=== PATIENT | male | born 1985 | race American Indian/Alaskan Native ===

== ENCOUNTER 2017-12-28 14:01 | Emergency (ER) | payer SELFPAY ==
--- NOTE | 2017-12-28 14:40 | C.PDOC ---
History Of Present Illness 32 y/o male presents to the ED for evaluation of a pilonidal abscess, onset a few days ago. Patient notes the area has been draining pus so he came in for evaluation. No fever or chills. Patient offers no other physical complaints. Time Seen by Provider: 12/28/17 14:32 Chief Complaint (Nursing): Abnormal Skin Integrity History Per: Patient History/Exam Limitations: no limitations Onset/Duration Of Symptoms: Days Current Symptoms Are (Timing): Still Present Quality Of Symptoms: Swollen, Draining Past Medical History Reviewed: Historical Data, Nursing Documentation, Vital Signs Vital Signs: Last Vital Signs Temp 98.1 F 12/28/17 14:10 Pulse 97 H 12/28/17 14:10 Resp 18 12/28/17 14:10 BP 157/110 H 12/28/17 14:10 Pulse Ox 100 12/28/17 15:03 - Medical History PMH: No Chronic Diseases Surgical History: No Surg Hx Family History: States: No Known Family Hx - Social History Hx Tobacco Use: No Hx Alcohol Use: No Hx Substance Use: No - Immunization History Hx Tetanus Toxoid Vaccination: No Hx Influenza Vaccination: No Hx Pneumococcal Vaccination: No Review Of Systems Except As Marked, All Systems Reviewed And Found Negative. Constitutional: Negative for: Fever, Chills Skin: Positive for: Other (Pilonidal abscess) Physical Exam - Physical Exam Appears: Well, Non-toxic, No Acute Distress Skin: Warm, Dry, Other (3 cm fluctuant swelling to pilonidal area, with purulent drainage) Head: Atraumatic, Normacephalic Eye(s): bilateral: Normal Inspection Neck: Supple Chest: Symmetrical Cardiovascular: Rhythm Regular, No Murmur Respiratory: Normal Breath Sounds, No Accessory Muscle Use Extremity: Bilateral: Atraumatic, Normal ROM Pulses: Left Radial: Normal, Right Radial: Normal Neurological/Psych: Oriented x3, Normal Speech Gait: Steady ED Course And Treatment O2 Sat by Pulse Oximetry: 100 (RA) Pulse Ox Interpretation: Normal - Incision & Drainage Of Abscess Anesthesia: Lidocaine 1% Prep Used: Sterile Water, Betadine Procedure: Incised W/Scalpel Blade#: (11), Drained Pus (Large amount of purulent drainage expressed), Irrigated Cavity W/Saline, Probed To Break Up Loculations Medical Decision Making Medical Decision Making: Impression: Pilonidal abscess Initial Plan: --Keflex 500 mg PO --Motrin 600 mg PO Abscess was incised and further drained (see procedure note). Patient will be discharged home on antibiotics. Return precautions discussed. Disposition Counseled Patient/Family Regarding: Diagnosis, Need For Followup, Rx Given - [facility] [Outside] Disposition: HOME/ ROUTINE Disposition Time: 15:30 Condition: GOOD Additional Instructions: Follow up with your PMD or clinic for further evaluation Prescriptions: Cephalexin [cephalexin] 500 mg PO Q6 #28 cap Naproxen [Naprosyn] 1 tab PO BID PRN #25 tab PRN Reason: Pain Instructions: Boil (DC), Pilonidal Cyst Forms: H2020 (Turkmen) - POA Present On Arrival: None - Clinical Impression Clinical Impression: Abscess - PA / TOE POUNDER / Resident Statement MD/DO has reviewed & agrees with the documentation as recorded. - Scribe Statement The provider has reviewed the documentation as recorded by the Scribe (Chika Beal) All medical record entries made by the Scribe were at my direction and personally dictated by me. I have reviewed the chart and agree that the record accurately reflects my personal performance of the history, physical exam, medical decision making, and the department course for this patient. I have also personally directed, reviewed, and agree with the discharge instructions and disposition.
[2017-12-28] MEDS ORDERED: Lidocaine Hydrochloride 5 ML INJ ONE (14:53)
[2017-12-28 15:29] VITALS: BP 154/104; PULSE 95; RESP 17; TEMP 99; O2SAT 98
== END 2017-12-28 15:28 | disposition home or self-care (01) ==
LOC: C.ER 14:01
DX: L05.01 Pilonidal cyst with abscess (principal)